=== PATIENT | female | born 1990 | race Two or more races ===

== ENCOUNTER 2024-08-19 08:02 | Emergency (ER) | payer MEDICAID, SELFPAY ==
[2024-08-19 08:31] VITALS: BP 126/89; PULSE 88; RESP 17; TEMP 36.6; O2SAT 98; BMI 31.8
--- NOTE | 2024-08-19 08:51 | EDNOTE_ITS ---
ED Dental RME/HPI General Chief complaint: Dental/Oral/Throat Stated complaint: Throat pain X 3 weeks Time Seen by Provider: 08/19/24 08:07 Arrival date/time: 08/19/24 08:02 34-year-old female presents emergency department today for complaints of sore throat ongoing x 3 weeks. Patient ports no fever nausea vomiting no headache dizziness weakness Limitations: no limitations Related Data Previous Rx's ?Medication ?Instructions ?Recorded Cyclobenzaprine * (FLEXERIL *) 10 mg PO Q8HR PRN spasm #10 tabs 01/30/16 ibuprofen 600 mg tablet 600 mg PO Q6HR PRN PAIN #40 tabs 01/30/16 ibuprofen 600 mg tablet 600 mg PO Q6H #30 tabs 08/19 prednisone 10 mg tablet 30 mg (3 x 10 mg) PO BID 3 d ays 08/19/24 #18 tabs Allergies Allergy/AdvReac Type Severity Reaction Status Date / Time NKA* Allergy Uncoded 08/19/24 08:05 Review of Systems Review of Systems Systems Reviewed: All systems reviewed, normal except as documented Constitutional Constitutional: Reports system reviewed and no additional complaints, except as documented, Denies fever(s) and Denies headache(s) Eyes Eyes: Reports system reviewed and no additional complaints, except as documented and Denies blurry vision ENT Ears, Nose, Mouth, and Throat: Reports system reviewed and no additional complaints, except as documented, Denies headache(s), Denies nasal congestion, Denies nasal discharge and Reports sore throat Cardiovascular Cardiovascular: Reports system reviewed and no additional complaints, except as documented, Denies chest pain and Denies dyspnea Respiratory Respiratory: Reports system reviewed and no additional complaints, except as documented, Denies chest congestion, Denies cough and Denies dyspnea Gastrointestinal Gastrointestinal: Reports system reviewed and no additional complaints, except as documented and Denies abdominal pain Integumentary/Breasts Skin/Breast: Reports system reviewed and no additional complaints, except as documented and Denies rash Neurologic Neurologic: Reports system reviewed and no additional complaints, except as documented, Reports as per HPI and Denies headache(s) Past Medical History Social History SMOKING STATUS: Never smoker ED Exam General Limitations: Present no limitations General appearance: Present alert and in no apparent distress Head Head exam: Present atraumatic, normocephalic and normal inspection Eye Eye exam: Present normal appearance, PERRL and EOMI; Absent conjunctival injection ENT ENT exam: Present mucous membranes moist Expanded ENT Exam Throat exam: Present tonsillar erythema and tonsillomegaly; Absent tonsillar exudate, R peritonsillar mass, L peritonsillar mass or muffled voice Neck Neck exam: Present normal inspection, full ROM and trachea midline Chest Chest inspection: Present normal inspection and symmetric chest wall rise Respiratory Respiratory exam: Present normal lung sounds bilaterally Cardiovascular Cardiovascular exam: Present regular rate, normal rhythm and normal heart sounds Abdominal Exam Abdominal exam: Present soft and normal bowel sounds Extremities Exam Extremities exam: Present normal inspection and full ROM Back Exam Back exam: Present normal inspection and full ROM Neurological Exam Neurological exam: Present alert, oriented X3, CN II-XII intact, normal gait and reflexes normal; Absent motor sensory deficit Psychiatric Psychiatric exam: Present normal affect and normal mood Skin Skin exam: Present warm, dry, intact and normal color; Absent rash Course Quality Measures none Orders Category Date Time Status Bedside COVID-19 Antigen Test NOW Care 08/19/24 08:35 Completed Bedside Influenza A&B Antigen Test NOW Care 08/19/24 08:35 Completed COVID-19 Antigen (In-House) Stat Lab 08/19/24 08:58 Completed [place] Screen Stat Lab 08/19/24 08:20 Completed Strep A Rapid Stat Lab 08/19/24 08:58 Completed Vital Signs Vital signs: Vital Signs Temperature 97.9 F 08/19/24 08:31 Pulse Rate 88 08/19/24 08:31 Respiratory Rate 17 08/19/24 08:31 Blood Pressure 126/89 H 08/19/24 08:31 Pulse Oximetry (%) 98 08/19/24 08:31 Oxygen Delivery Method Room Air 08/19/24 08:31 O2 saturation 98% room air within normal limits Dental / Oral MDM Narrative MDM Narrative:: 34-year-old female presents emergency department today for complaints of sore throat ongoing x 3 weeks. Patient reports no fever nausea vomiting no headache dizziness weakness On exam patient well-appearing patient does not appear ill or toxic no acute distress Lab work obtained no acute emergent findings noted Clinically patient does not appear to have strep throat patient is no trismus no hoarseness of voice no difficulty breathing or swallowing Patient has no swelling of the oropharynx Patient discharged home in no distress to follow-up with primary care doctor in the next 24 to 48 hours and for any worsening symptoms to return to the ER immediately Patient data External records reviewed:: [facility] previous records Clinical information provided by:: patient Social determinants that could affect healthcare access:: none Patient has the following chronic illnesses:: None How is presenting disease/condition affected by chronic disease/condition?: no chronic disease Evaluation data The following diagnostics were reviewed and interpreted by me:: lab results Lab and/or radiology exams considered but not ordered:: Labs obtain Interpretation Summary: Reviewed by me Medications / Prescriptions Medications or Prescriptions considered but not ordered:: Given Medication administrations:: Given Consultations Consultation(s) initiated? (list below): No Diagnosis Dental Differential Diagnosis: other (Viral pharyngitis, streptococcal pharyngitis, mononucleosis) Most likely diagnosis given after review of the tests above:: Pharyngitis Admission Indicated Admission indicated?: not indicated Admission Request Was there a request for admission?: No Disposition Plan Disposition Plan: Discharge Discharge Attestation Discharge Attestation: The patient and all family members were given an opportunity to ask questions and understood the discharge instructions. Discharge instructions specifically effects, indications for sooner follow up or return to the emergency department, and the expected course of current diagnosis. Patient condition: Stable Discharge Plan Plan Patient Disposition: HOME (Self Care) Discharge Disposition comment: Stable Prescriptions/Referrals Prescriptions/Med Rec: New prednisone 10 mg tablet 30 mg PO BID 3 Days Qty: 18 0RF ibuprofen 600 mg tablet 600 mg PO Q6H Qty: 30 0RF No Action ibuprofen 600 MG tablet 600 mg PO Q6HR PRN (Reason: PAIN) Qty: 40 0RF Cyclobenzaprine * (FLEXERIL *) 10 MG tablet 10 mg PO Q8HR PRN (Reason: spasm) Qty: 10 0RF Referrals: No Primary/Family,Physician [Primary Care Provider] - In 1 week Problem List Clinical Impression: Viral pharyngitis Patient/Caregiver Discharge Instructions Education Materials: Self-Care for Sore Throats Additional Instructions: Please follow up with your primary care doctor in the next 24-48hrs for any worsening symptoms return here immediately Print Language: Tamazight Stand Alone Forms: Carrie Award Info., Patient Portal Info Letter PA/NATALIE Supervising Physician SALVATORE/NATALIE Supervising Physician: Dr. [email or web address]
[2024-08-19 10:09] LABS: Strep A Rapid Negative (Negative)
[2024-08-19 10:17] LABS: COVID-19 Antigen (In-House) Negative (Negative)
[2024-08-19 10:17] LABS: Mono Screen Negative (Negative)
== END 2024-08-19 09:00 | disposition home or self-care (01) ==
PROVIDERS: Nurse Practitioner Primary Care; Emergency Provider Emergency Medicine
DX: J02.8 Acute pharyngitis due to other specified organisms (principal); B97.89 Other viral agents as the cause of diseases classified elsewhere
CPT/HCPCS: 36415; 86308; 87651; 87811; 99283

== ENCOUNTER 2024-11-30 18:14 | Emergency (ER) | payer MEDICAID, SELFPAY ==
[2024-11-30 18:30] VITALS: BP 127/87; PULSE 102; RESP 16; TEMP 37.1; O2SAT 98; BMI 32.5
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
[2024-11-30] MEDS: IBUPROFEN TAB 600 MG TABLET PO (19:14)
[2024-11-30 19:52] LABS: HCG Qualitative,Urine Negative
== END 2024-11-30 20:43 | disposition home or self-care (01) ==
PROVIDERS: Physician Assistant; Emergency Provider Emergency Medicine; PCP Student in an Organized Health Care Education/Training Program
DX: M54.50 Low back pain, unspecified (principal); R51.9 Headache, unspecified; V89.9XXA Person injured in unspecified vehicle accident, initial encounter
CPT/HCPCS: 72100; 81025; 99283; A9270